=== PATIENT | male | born 1975 | race Caucasian/White ===

== ENCOUNTER → 2018-01-28 | Outpatient (CLI) | payer BC ==
[2018-01-28 07:28] LABS: Basophils # (auto) 0 uL; Basophils % (auto) 0.6 % (0.0-2.0); Eosinophils # (auto) 0.1 uL; Eosinophils % (auto) 1.8 % (0.0-7.0); Hematocrit 46.4 % (41.0-53.0); Hemoglobin 15.5 g/dL (13.5-17.5); Lymphocytes # (auto) 2.3 uL; Lymphocytes % (auto) 35.6 % (10.0-50.0); Mean Corpuscular Hemoglobin 27.7 pg (28.0-32.0); Mean Corpuscular Hgb Conc. 33.5 g/dL (32.0-36.0); Mean Corpuscular Volume 82.6 fL (80.0-100.0); Monocytes # (auto) 0.5 uL; Neutrophils # (auto) 3.6 uL; Nucleated Red Blood Cells % 0.2 %; Platelet Count (auto) 251 10^3/uL (140-450); Red Blood Cells 5.62 10^6/uL (4.5-5.90); Red Cell Distribution Width 13.9 % (11.8-14.3); White Blood Cell 6.5 10^3/uL (4.4-10.8)
[2018-01-28 07:53] LABS: Albumin 4.1 g/dL (3.4-5.0); BUN/Creatinine Ratio 11.1; Calcium 9.3 mg/dL (8.5-10.1); Potassium 3.9 mmol/L (3.5-5.1)
[2018-01-28 07:56] LABS: Bilirubin, Total 0.5 mg/dL (0.2-1.0)
== END | disposition home or self-care (01) ==
LOC: LAB 07:17
PROVIDERS: ATTEND Internal Medicine
DX: I10 Essential (primary) hypertension (principal); E78.5 Hyperlipidemia, unspecified
CPT/HCPCS: 36415; 80053; 80061; 84443; 85025

== ENCOUNTER → 2018-09-20 | Outpatient (CLI) | payer BC | END | disposition home or self-care (01) | LOC: LAB 14:45 | PROVIDERS: ATTEND Nurse Practitioner | DX: Z11.1 Encounter for screening for respiratory tuberculosis (principal); E55.9 Vitamin D deficiency, unspecified | CPT/HCPCS: 82306 ==

== ENCOUNTER → 2019-10-21 | Outpatient (CLI) | payer BC, OTHER | END | disposition home or self-care (01) | LOC: LAB 09:00 | PROVIDERS: ATTEND Nurse Practitioner Family | DX: Z03.818 Encounter for observation for suspected exposure to other biological agents ruled out (principal) ==

== ENCOUNTER → 2020-03-26 | Outpatient (CLI) | payer BC | END | disposition home or self-care (01) | LOC: LAB 09:35 | PROVIDERS: ATTEND Nurse Practitioner Family | DX: Z20.828 Contact with and (suspected) exposure to other viral communicable diseases (principal) | CPT/HCPCS: C9803; U0003 ==

== ENCOUNTER → 2020-07-25 | Outpatient (CLI) | payer BC ==
[2020-07-25 09:31] LABS: Basophils # (auto) 0 10 ^3/uL (0-0.2); Basophils % (auto) 0.6 % (0.0-2.0); Eosinophils # (auto) 0.1 10 ^3/uL (0-0.8); Eosinophils % (auto) 0.8 % (0.0-7.0); Hematocrit 44.2 % (41.0-53.0); Hemoglobin 15.2 g/dL (13.5-17.5); Lymphocytes # (auto) 1.9 10 ^3/uL (0.4-5.4); Lymphocytes % (auto) 29.7 % (10.0-50.0); Mean Corpuscular Hemoglobin 28.1 pg (28.0-32.0); Mean Corpuscular Hgb Conc. 34.3 g/dL (32.0-36.0); Monocytes # (auto) 0.4 10 ^3/uL (0-1.3); Monocytes % (auto) 6.3 % (0.0-12.0); Neutrophils # (auto) 4.1 10 ^3/uL (1.6-8.6); Neutrophils % (auto) 62.6 % (37.0-80.0); Nucleated Red Blood Cells % 0.8 %; Platelet Count (auto) 268 10^3/uL (140-450); Red Blood Cells 5.39 10^6/uL (4.5-5.90); White Blood Cell 6.6 10^3/uL (4.4-10.8)
[2020-07-25 09:48] LABS: Albumin 4.1 g/dL (3.4-5.0); Calcium 9.4 mg/dL (8.5-10.1); Potassium 3.9 mmol/L (3.5-5.1)
[2020-07-25 09:54] LABS: BUN/Creatinine Ratio 11.1; Bilirubin, Total 0.7 mg/dL (0.2-1.0); Total Protein 7.8 g/dL (6.4-8.2)
== END | disposition home or self-care (01) ==
LOC: LAB 08:19
PROVIDERS: ATTEND Internal Medicine
DX: N40.0 Benign prostatic hyperplasia without lower urinary tract symptoms (principal); E55.9 Vitamin D deficiency, unspecified
CPT/HCPCS: 36415; 80053; 80061; 82270; 82306; 83036; 84153; 84443; 85025

== ENCOUNTER → 2021-02-27 | Outpatient (CLI) | payer BC ==
[2021-02-27 09:19] LABS: Potassium 4.2 mmol/L (3.5-5.1)
[2021-02-27 09:29] LABS: Albumin 4.3 g/dL (3.4-5.0); Bilirubin, Total 0.5 mg/dL (0.2-1.0); Calcium 9.6 mg/dL (8.5-10.1); Total Protein 7.4 g/dL (6.4-8.2)
== END | disposition home or self-care (01) ==
LOC: LAB 07:24
PROVIDERS: ATTEND Internal Medicine
DX: E78.5 Hyperlipidemia, unspecified (principal)
CPT/HCPCS: 36415; 80053; 80061

== ENCOUNTER → 2021-04-29 | Outpatient (CLI) | payer BC | END | disposition home or self-care (01) | LOC: LAB 06:54 | PROVIDERS: ATTEND Nurse Practitioner Family | DX: Z11.52 Encounter for screening for COVID-19 (principal) | CPT/HCPCS: C9803; U0003 ==

== ENCOUNTER → 2021-05-07 | Outpatient (CLI) | payer BC | END | disposition home or self-care (01) | LOC: LAB 09:19 | PROVIDERS: ATTEND Physician Assistant | DX: Z20.822 Contact with and (suspected) exposure to COVID-19 (principal) | CPT/HCPCS: C9803; U0003 ==

== ENCOUNTER → 2021-05-10 | Outpatient (CLI) | payer BC | END | disposition home or self-care (01) | LOC: LAB 09:02 | PROVIDERS: ATTEND Nurse Practitioner Family | DX: Z20.822 Contact with and (suspected) exposure to COVID-19 (principal) | CPT/HCPCS: C9803; U0003 ==

== ENCOUNTER → 2022-01-24 | Outpatient (CLI) | payer BC ==
[2022-01-24 09:43] LABS: Basophils # (auto) 0 10 ^3/uL (0-0.2); Basophils % (auto) 0.6 % (0.0-2.0); Eosinophils # (auto) 0.1 10 ^3/uL (0-0.8); Eosinophils % (auto) 1.6 % (0.0-7.0); Hematocrit 43.6 % (41.0-53.0); Hemoglobin 14.5 g/dL (13.5-17.5); Lymphocytes # (auto) 1.8 10 ^3/uL (0.4-5.4); Lymphocytes % (auto) 29.1 % (10.0-50.0); Mean Corpuscular Hemoglobin 27.4 pg (28.0-32.0); Mean Corpuscular Hgb Conc. 33.4 g/dL (32.0-36.0); Mean Corpuscular Volume 82.1 fL (80.0-100.0); Monocytes # (auto) 0.4 10 ^3/uL (0-1.3); Monocytes % (auto) 6.6 % (0.0-12.0); Neutrophils # (auto) 3.9 10 ^3/uL (1.6-8.6); Neutrophils % (auto) 62.1 % (37.0-80.0); Nucleated Red Blood Cells % 0.2 %; Red Blood Cells 5.31 10^6/uL (4.5-5.90); Red Cell Distribution Width 13.7 % (11.8-14.3); White Blood Cell 6.3 10^3/uL (4.4-10.8)
[2022-01-24 11:56] LABS: Potassium 4.3 mmol/L (3.5-5.1)
[2022-01-24 12:00] LABS: Albumin 4.3 g/dL (3.4-5.0); BUN/Creatinine Ratio 16.3; Calcium 9.3 mg/dL (8.5-10.1)
[2022-01-24 12:02] LABS: Bilirubin, Total 0.5 mg/dL (0.2-1.0); Total Protein 7.6 g/dL (6.4-8.2)
== END | disposition home or self-care (01) ==
LOC: LAB 09:17
PROVIDERS: ATTEND Internal Medicine
DX: I10 Essential (primary) hypertension (principal); D64.9 Anemia, unspecified; E78.5 Hyperlipidemia, unspecified
CPT/HCPCS: 36415; 80053; 80061; 83036; 84153; 84443; 85025

== ENCOUNTER → 2022-03-28 | Outpatient (CLI) | payer BC | END | disposition home or self-care (01) | LOC: LAB 12:08 | PROVIDERS: ATTEND Internal Medicine | DX: Z00.00 Encounter for general adult medical examination without abnormal findings (principal) | CPT/HCPCS: 86787 ==

== ENCOUNTER → 2023-12-21 | Outpatient (CLI) | payer BC | END | disposition home or self-care (01) | LOC: XYW 15:10 | PROVIDERS: ATTEND Internal Medicine | DX: I51.89 Other ill-defined heart diseases (principal); R00.2 Palpitations | CPT/HCPCS: 93306 ==

== ENCOUNTER → 2024-02-05 | Outpatient (CLI) | payer BC ==
[~2024-02-05] VITALS: Ht 170.2 cm; Wt 97.5 kg
[2024-02-05] MEDS: REGADENOSON 0.4 MG/5 ML SYRG IV ONE ×2 (11:46)
--- NOTE | 2024-02-05 14:54 | DVHSR ---
APPROVED REPORT Exam: Nuclear Stress Test Indication: CP BMI: 0 Medical History Medical History: HTN Allergies: No known drug allergies Stress Test Details Stress Test: Pharmacologic stress testing performed using 0.4 mg of regadenoson per 5 mL given IV ov er 10 seconds. HR Resting HR: 75 bpmMax Heart Rate (APMHR): 170.755257 bpm Max HR Achieved: 110 bpmTarget HR (85% APMHR): 144.757818 bpm % of APMHR: 64.71 Recovery HR: 80 bpm BP Resting BP: 133/83 mmHg Recovery BP: 159/96 mmHg ECG Resting ECG: Sinus Rhythm Clinical Reason for Termination: Completed protocol Nurse Comments Recieved pt. from [facility]. A/Ox4 on RA. Connected to color television console monitor, VS stable. Per Dr. Damian, study was changed from a treadmill to Lexiscan due to senior property manager being unavilable to monitor exam. PIV flushes well. Reviewed POC. Pt. verbalized understanding of procedure including risks and side ef fects, agrees for stress testing. Lexiscan stress test performed per protocol. [facility] tech administered Cardiolite. Pt. tolerated well . Pt. stable, no change on exam. VS returned to baseline. Transferred to [facility] via wheelchair w/ te ch. Stress ECG Conclusion Resting ECG shows normal sinus rhythm. At peak stress level no dynamic EKG changes was noted to sugg est ischemia. Resting images shows near homogeneous uptake of radioactive tracer throughout the myocardium without evidence of myocardial infarction. Stress images shows near homogeneous uptake of radioactive tracer throughout the myocardium without e vidence of myocardial ischemia. Well-preserved left ventricular systolic function 85%. Impression: Negative stress ischemia, low risk study NM EXAM: Myocardial Perfusion REST/STRESS Imaging Protocol: Rest Tc-99m/Stress Tc-99m 1 day Resting Data Rest SPECT myocardial perfusion imaging was performed in supine position 60 minutes following the int ravenous injection of 12.6 mCi of Tc-99m Sestamibi. Time of rest injection: 1034 Time of rest imagin Administration Route: IV Administration Site: Right Hand Pharmacologic Stress Pharmacologic stress test was performed by injecting Regadenoson 0.4 mg IV push followed by the intra venous injection of 36.3 mCi of Tc-99m Sestamibi. Time of stress injection: 1146 Time of stress imagin Administration Route: IV Administration Site: Right Hand Gated Stress SPECT was performed 60 minutes after stress injection. The images were gated to evaluate regional wall motion and calculate left ventricular ejection fracti on. Stress only was performed in the Supine position. Nuclear Conclusion ECG Findings: negative for ischemia Clinical Findings: negative for ischemia Nuclear Findings: negative for ischemia Exercise Capacity: not assessed Left Ventricular Function: normal Risk Study: low Resting ECG shows normal sinus rhythm. At peak stress level no dynamic EKG changes was noted to sugg est ischemia. Resting images shows near homogeneous uptake of radioactive tracer throughout the myocardium without evidence of myocardial infarction. Stress images shows near homogeneous uptake of radioactive tracer throughout the myocardium without e vidence of myocardial ischemia. Well-preserved left ventricular systolic function 85%. Impression: Negative stress ischemia, low risk study
== END | disposition home or self-care (01) ==
LOC: XYW 11:30
PROVIDERS: ATTEND Internal Medicine
DX: R07.9 Chest pain, unspecified (principal)
CPT/HCPCS: 78452; 93017; A9500; J2785

== ENCOUNTER → 2024-02-15 | Outpatient (CLI) | payer BC ==
[2024-02-15 09:49] LABS: Alanine Aminotransferase 24 U/L (7-40); Albumin 4.4 g/dL (3.2-4.8); Alkaline Phosphatase 59 U/L (46-116); Anion Gap 8 (5-15); Aspartate Aminotransferase 15 U/L (13-40); Blood Urea Nitrogen 10 mg/dL (9-23); Calcium 9.8 mg/dL (8.7-10.4); Carbon Dioxide 27 mmol/L (20-31); Chloride 106 mmol/L (98-107); Cholesterol 181 mg/dL (< 200); Glucose 114 mg/dL (74-106); HDL Cholesterol 31 mg/dL (40-59); LDL Cholesterol 137 mg/dL (< 100); Sodium 141 mmol/L (136-145); Triglycerides 146 mg/dL (< 150)
[2024-02-15 09:50] LABS: Bilirubin, Total 0.6 mg/dL (0.2-1.0); Total Protein 6.8 g/dL (5.7-8.2)
== END | disposition home or self-care (01) ==
LOC: LAB 09:15
PROVIDERS: ATTEND Internal Medicine
DX: I10 Essential (primary) hypertension (principal); E78.5 Hyperlipidemia, unspecified
CPT/HCPCS: 36415; 80053; 80061; 83880

== ENCOUNTER → 2025-01-13 | Outpatient (CLI) | payer BC ==
[2025-01-13 08:08] LABS: Hematocrit 44.1 % (41.0-53.0); Hemoglobin 15.2 g/dL (13.5-17.5); Mean Corpuscular Hemoglobin 28.0 pg (28.0-32.0); Mean Corpuscular Volume 81.4 fL (80.0-100.0); Nucleated Red Blood Cells % 0.1 %
[2025-01-13 08:20] LABS: Urine Protein, UAD Negative (Negative)
[2025-01-13 08:43] LABS: Albumin 4.7 g/dL (3.2-4.8); Alkaline Phosphatase 68 U/L (46-116); Anion Gap 11 (5-15); BUN/Creatinine Ratio 10.0 (10.0-20.0); Calcium 9.5 mg/dL (8.7-10.4); Carbon Dioxide 25 mmol/L (20-31); Chloride 104 mmol/L (98-107); Cholesterol 196 mg/dL (< 200); Potassium 3.9 mmol/L (3.5-5.1); Sodium 140 mmol/L (136-145); Total Protein 7.4 g/dL (5.7-8.2)
[2025-01-13 08:44] LABS: Bilirubin, Total 0.6 mg/dL (0.2-1.0)
[2025-01-13 08:54] LABS: Alanine Aminotransferase 53 U/L (7-40); Blood Urea Nitrogen 9 mg/dL (9-23); Glucose 145 mg/dL (74-106); HDL Cholesterol 27 mg/dL (40-59); Triglycerides 285 mg/dL (< 150)
[2025-01-13 11:22] LABS: Prostate Specific Antigen 0.48 ng/mL (0.0-4.0)
== END | disposition home or self-care (01) ==
LOC: LAB 07:48
PROVIDERS: ATTEND Internal Medicine
DX: I10 Essential (primary) hypertension (principal); E78.5 Hyperlipidemia, unspecified; R73.9 Hyperglycemia, unspecified
CPT/HCPCS: 36415; 80053; 80061; 81001; 82306; 82607; 82746; 83036; 84153; 84443; 85025

== ENCOUNTER 2025-01-25 11:30 | Outpatient (CLI) | payer BC ==
[2025-01-25 12:40] LABS: Alanine Aminotransferase 39.0 U/L (7-40); Albumin 4.8 g/dL (3.2-4.8); Alkaline Phosphatase 66.0 U/L (46-116); Bilirubin, Direct 0.1 mg/dL (<0.3); Bilirubin, Total 0.5 mg/dL (0.2-1.0); Total Protein 7.6 g/dL (5.7-8.2)
[2025-01-25 12:54] LABS: Hepatitis B Surface Antigen Negative (Negative)
[2025-01-25 13:21] LABS: Hepatitis C Antibody Negative (Negative)
[2025-01-26 14:07] LABS: Anti-Nuclear Antibody Direct Negative (Negative); Anti-dsDNA Antibody <1 IU/mL (0-9); Antiscleroderma-70 Antibody <0.2 AI (0.0-0.9); Sjogren's Anti-SS-A Antibody <0.2 AI (0.0-0.9); Sjogren's Anti-SS-B Antibody <0.2 AI (0.0-0.9)
== END 2025-01-25 17:00 | disposition home or self-care (01) ==
LOC: LAB 11:30
PROVIDERS: ATTEND Internal Medicine
DX: E11.9 Type 2 diabetes mellitus without complications (principal); E78.5 Hyperlipidemia, unspecified; Z86.69 Personal history of other diseases of the nervous system and sense organs
CPT/HCPCS: 36415; 80074; 80076; 86160; 86225; 86235; 86376; 86431